=== PATIENT | male | born 1995 | race Caucasian/White ===

== ENCOUNTER 2018-03-05 12:06 | Emergency (ER) | payer OTHER ==
[~2018-03-05] VITALS: Ht 180.3 cm; Wt 81.7 kg
[~2018-03-05 12:06] MED LIST: CENTRUM PERFOR1 EACH; HYDROCORTISO28.35 G1 TOP; IBUPROFEN 600600 M1 PO; MULTIVITAMINS; PREDNISONE 20 M20 M1 PO; PREDNISONE 5 MG5 M1 PO; [UNRECOGNIZED DRUG - OTHER] OTIC
[2018-03-05 12:10] VITALS: BP 135/78
[2018-03-05] MEDS ORDERED: NAPROSYN500 MG PO (12:22)
[2018-03-05] MEDS ORDERED: KEFLEX500 M1 PO (12:23)
[2018-03-05] MEDS ORDERED: LITHIUM CARBON300 M7 PO (12:23)
[2018-03-05] MEDS ORDERED: NORCO 5-325 TA1 EACH PO (12:23)
== END 2018-03-05 12:52 | disposition home or self-care (01) ==
LOC: ER 12:06
DX: S80.02XA Contusion of left knee, initial encounter (principal); L03.116 Cellulitis of left lower limb; F17.210 Nicotine dependence, cigarettes, uncomplicated; W01.0XXA Fall on same level from slipping, tripping and stumbling without subsequent striking against object, initial encounter; Y92.89 Other specified places as the place of occurrence of the external cause; Y93.89 Activity, other specified; Y99.8 Other external cause status

== ENCOUNTER 2018-03-11 13:49 | Emergency (ER) | payer OTHER ==
[~2018-03-11] VITALS: Ht 177.8 cm; Wt 81.7 kg
[~2018-03-11 13:49] MED LIST changes: +KEFLEX500 M1 PO; +LITHIUM CARBON300 M7 PO; +NAPROSYN500 MG PO; +NORCO 5-325 TA1 EACH PO
[2018-03-11 14:58] LABS: ABSOLUTE NEUTROPHILS 4.8 thou/uL (1.4-8.2); BASOPHILS 0.9 % (0.0-2.0); EOSINOPHILS 3.5 % (0.0-3.0); HEMATOCRIT 43.8 % (42.0-52.0); HEMOGLOBIN 14.9 gm/dL (14.0-18.0); LYMPHOCYTES 28.4 % (24.0-44.0); MCH 31.9 pg (26.0-34.0); MCV 93.6 fL (80.0-100.0); MONOCYTES 6.8 % (1.0-8.0); PLATELET COUNT 473 thou/uL (150-400); POLYS 60.4 % (36.0-66.0); RBC 4.68 mil/uL (4.50-6.00); RDW 13.5 % (10.5-14.5)
[2018-03-11 15:08] LABS: CREATININE 0.9 mg/dL (0.7-1.3); POTASSIUM 4.2 mmol/L (3.5-5.1)
[2018-03-11 15:13] LABS: CALCIUM 9.5 mg/dL (8.5-10.1)
[2018-03-11] MEDS ORDERED: CLEOCIN HCL150 MG PO (16:27)
[2018-03-11 16:55] VITALS: BP 114/74
== END 2018-03-11 16:58 | disposition home or self-care (01) ==
LOC: ER 13:49
PROVIDERS: Physician Assistant
DX: L03.116 Cellulitis of left lower limb (principal); F17.210 Nicotine dependence, cigarettes, uncomplicated